=== PATIENT | male | born 1955 | race Caucasian/White ===

== ENCOUNTER 2016-10-14 19:55 | Emergency (ER) | payer OTHER ==
--- NOTE | 2016-10-14 20:09 | ER Document Report ---
ED Medical Screen (RME) - General Stated Complaint: LEFT LEG PAIN Mode of Arrival: Ambulatory Information source: Patient Notes: Patient complains of left lower extremities pain that started last week. Pain is worse with ambulation. states that there is a large bruised area to posterior leg. No fever. No chest pain, no shortness of breath. hx: Hypertension, arthritis I have greeted and performed a rapid initial assessment of this patient. A comprehensive ED assessment and evaluation of the patient, analysis of test results and completion of the medical decision making process will be conducted by additional ED providers. TRAVEL OUTSIDE OF THE [place] IN LAST 30 DAYS: No - Related Data Allergies/Adverse Reactions: Penicillins Allergy (Verified 10/14/16 20:08) Sulfa (Sulfonamide Antibiotics) Allergy (Verified 10/14/16 20:08) Physical Exam - Vital signs Vitals: Temp Pulse Resp BP Pulse Ox 98.6 F 77 16 158/70 H 96 10/14/16 20:02 10/14/16 20:02 10/14/16 20:02 10/14/16 20:02 10/14/16 20:02 - Extremities General lower extremity: Tender - Medial left thigh tenderness Course - Re-evaluation Re-evalutation: 10/14/16 20:[address] Calle who agrees with plan for Doppler imaging 10/14/16 20:09 Division Head, Allan, advised of order for doppler that was placed. - Vital Signs Vital signs: Temp Pulse Resp BP Pulse Ox 98.6 F 77 16 158/70 H 96 10/14/16 20:02 10/14/16 20:02 10/14/16 20:02 10/14/16 20:02 10/14/16 20:02
[2016-10-14 20:31] LABS: ABSOLUTE BASOPHILS # (AUTO) 0.1 10^3/uL (0.0-0.2); ABSOLUTE EOSINOPHILS # (AUTO) 0.3 10^3/uL (0.0-0.6); ABSOLUTE MONOCYTES (AUTO) 0.9 10^3/uL (0.1-1.4); BASOPHILS % (AUTO) 0.9 % (0-2); EOSINOPHILS % (AUTO) 2.8 % (0-6); HEMATOCRIT 40.3 % (37.9-51.0); HGB HCT DIFFERENCE 1.7; LYMPHOCYTES % (AUTO) 32.2 % (13-45); MEAN CORPUSCULAR HEMOGLOBIN 30.2 pg (27.0-33.4); MEAN CORPUSCULAR HGB CONC 34.8 g/dL (32.0-36.0); MEAN CORPUSCULAR VOLUME 87 fl (80-97); MONOCYTES % (AUTO) 9.7 % (3-13); RED BLOOD COUNT 4.64 10^6/uL (4.35-5.55); SEGMENTED NEUTROPHILS % (AUTO) 54.4 % (42-78); WHITE BLOOD COUNT 9.2 10^3/uL (4.0-10.5)
[2016-10-14 20:43] LABS: PROTHROMBIN TIME 13.2 SEC (11.4-15.4)
[2016-10-14 20:44] LABS: PARTIAL THROMBOPLASTIN TIME 31.8 SEC (23.5-35.8)
[2016-10-14 20:52] LABS: ALANINE AMINOTRANSFERASE 21 U/L (21-72); ALBUMIN 4.2 g/dL (3.5-5.0); ALKALINE PHOSPHATASE 86 U/L (38-126); ANION GAP 15 (5-19); ASPARTATE AMINO TRANSFERASE 21 U/L (17-59); BILIRUBIN,DIRECT 0.3 mg/dL (0.0-0.4); BILIRUBIN,TOTAL 0.5 mg/dL (0.2-1.3); BLOOD UREA NITROGEN 21 mg/dL (7-20); CALCIUM 9.8 mg/dL (8.4-10.2); CARBON DIOXIDE 27 mmol/L (22-30); CHLORIDE 106 mmol/L (98-107); GLUCOSE 103 mg/dL (75-110); POTASSIUM 4.3 mmol/L (3.6-5.0); SODIUM 148.2 mmol/L (137-145); TOTAL PROTEIN 7.3 g/dL (6.3-8.2)
[2016-10-15] MEDS ORDERED: HYDROCODONE/ACETAMINOPHEN 5-325 MG 6 TAB/DSPK PO PRN (01:12)
--- NOTE | 2016-10-15 01:25 | ER Document Report ---
ED Extremity Problem, Lower - General Chief Complaint: Leg Swelling Stated Complaint: LEFT LEG PAIN Time seen by provider: 01:10 Mode of Arrival: Ambulatory Notes: Patient is a 61-year-old male that comes emergency department for chief complaint of left leg pain, started 1 week ago, had an initial sharp pain one night that he tried to walk off but only got worse. He states he takes tramadol for pain but it is not helping much. He denies shortness of breath, chest pain, abdominal pain, fever, or any other symptoms. He denies smoking, history of blood clots, recent travel or surgery. Past medical history of hypertension. TRAVEL OUTSIDE OF THE [place] IN LAST 30 DAYS: No - Related Data Allergies/Adverse Reactions: Penicillins Allergy (Verified 10/14/16 20:08) Sulfa (Sulfonamide Antibiotics) Allergy (Verified 10/14/16 20:08) Past Medical History - General Information source: Patient - Social History Smoking Status: Never Smoker Chew tobacco use (# tins/day): No Frequency of alcohol use: None Drug Abuse: None Lives with: Family Family History: Reviewed & Not Pertinent - Medical History Medical History: Negative Renal/ Medical History: Denies: Hx Peritoneal Dialysis Surgical Hx: Negative - Immunizations Immunizations up to date: Yes Hx Diphtheria, Pertussis, Tetanus Vaccination: Yes Review of Systems - Review of Systems Constitutional: No symptoms reported EENT: No symptoms reported Cardiovascular: No symptoms reported Respiratory: No symptoms reported Gastrointestinal: No symptoms reported Genitourinary: No symptoms reported Male Genitourinary: No symptoms reported Musculoskeletal: See HPI Skin: No symptoms reported Hematologic/Lymphatic: No symptoms reported Neurological/Psychological: No symptoms reported Physical Exam - Vital signs Vitals: Temp Pulse Resp BP Pulse Ox 98.6 F 77 16 158/70 H 96 10/14/16 20:02 10/14/16 20:02 10/14/16 20:02 10/14/16 20:02 10/14/16 20:02 Interpretation: Normal - General General appearance: Appears well, Alert In distress: None - HEENT Head: Normocephalic, Atraumatic Eyes: Normal Pupils: PERRL - Respiratory Respiratory status: No respiratory distress Chest status: Nontender Breath sounds: Normal Chest palpation: Normal - Cardiovascular Rhythm: Regular Heart sounds: Normal auscultation Murmur: No - Abdominal Inspection: Normal Distension: No distension Bowel sounds: Normal Tenderness: Nontender Organomegaly: No organomegaly - Back Back: Normal, Nontender - Extremities General upper extremity: Normal inspection, Nontender, Normal color, Normal ROM , Normal temperature General lower extremity: Other - There is ecchymosis over the medial distal aspect of the thigh extending around to the posterior aspect of the left lower extremity. Tenderness in the area, no abnormal heat or erythema, range of motion still intact at the hip and knee, no edema of the lower extremity, no swelling of the lower extremity, normal distal neurovascular exam, normal examination otherwise. - Neurological Neuro grossly intact: Yes Cognition: Normal Orientation: AAOx4 [place] Coma Scale Eye Opening: Spontaneous [place] Coma Scale Verbal: Oriented [place] Coma Scale Motor: Obeys Commands Brian Coma Scale Total: 15 Speech: Normal Motor strength normal: LUE, RUE, LLE, RLE Sensory: Normal - Psychological Associated symptoms: Normal affect, Normal mood - Skin Skin Temperature: Warm Skin Moisture: Dry Skin Color: Normal Course - Re-evaluation Re-evalutation: Patient tells me he can emergency department for a Doppler ultrasound of the leg , however despite this being ordered this was not completed, it is now after to 2200 and I'm unable to contact the Doppler wire technician to have this completed, this will not be available until about 7-8 hours from now. CBC, chemistry, coags unremarkable. 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 I discussed this with patient, apologized that at this time we would not be perform the ultrasound but I have low suspicion of this being a blood clot based on his evaluation. I recommend follow-up closely with his provider for a recheck and reevaluation, gave recommendations for treatment of the hematoma, I did provide him with pain medication for this, I discussed return precautions in detail. Patient states understanding and agreement. - Vital Signs Vital signs: Temp Pulse Resp BP Pulse Ox 98.3 F 65 18 139/78 H 96 10/15/16 02:00 10/15/16 02:00 10/15/16 02:00 10/15/16 02:00 10/15/16 02:00 - Laboratory Result Diagrams: 10/14/16 20:20 10/14/16 20:20 Laboratory results interpreted by me: 10/14/16 20:20 Sodium 148.2 H BUN 21 H Discharge - Discharge Clinical Impression: Left leg pain Condition: Stable Disposition: HOME, SELF-CARE Additional Instructions: The bruising of the left leg is consistent with a hamstring injury. Apply heat to the area, take the pain medication if needed, this takes time to heal. Avoid significant exertion on the area. Follow-up with her primary care provider in about a week for a reevaluation. Follow-up with orthopedics for additional management, see referral. Return immediately for any concerning symptoms including redness to the area, swelling of your lower extremity, fever, shortness of breath, chest pain, or any other concerning symptoms. Prescriptions: Hydrocodone/Acetaminophen [[place] 5-325 mg Tablet] 1 - 2 tab PO ASDIR #15 tablet Forms: Return to Work Referrals: RONALD LATHAM MD [ACTIVE STAFF] - Follow up as needed
[2016-10-15 02:19] VITALS: BP 139/78
== END 2016-10-15 02:00 | disposition home or self-care (01) ==
LOC: ER 19:55
DX: M79.605 Pain in left leg (principal); R58 Hemorrhage, not elsewhere classified; I10 Essential (primary) hypertension; Z88.0 Allergy status to penicillin; Z88.2 Allergy status to sulfonamides
CPT/HCPCS: 36415; 80053; 85025; 85610; 85730; 99283